=== PATIENT | male | born 1965 | race Caucasian/White ===

== ENCOUNTER 2017-07-24 05:47 | Day surgery (SDC) | payer BC ==
[~2017-07-24] VITALS: Ht 170.2 cm; Wt 67.1 kg
[2017-07-24] MEDS ORDERED: MIDAZOLAM HCL 5 MG/ML VIAL (VERSED) IV ONE (05:48)
[2017-07-24] MEDS ORDERED: LIDOCAINE/EPI 1% 1:100000 20 ML VIAL INJ ONE (05:48)
[2017-07-24] MEDS ORDERED: KETOROLAC TROMETHAMINE 30 MG VIAL IVP ONE (05:48)
[2017-07-24] MEDS ORDERED: ONDANSETRON HCL 4 MG/2 ML VIAL IVP ONE (05:48)
[2017-07-24] MEDS ORDERED: ROCURONIUM BROMIDE 10 MG/ML (ZEMURON) IV ONE (05:48)
[2017-07-24] MEDS ORDERED: PROPOFOL 200MG/ 20ML VIAL (DIPRIVAN) IV ONE (05:48)
[2017-07-24] MEDS ORDERED: LR 1,000 ML IV.SOLN IV ONE (05:48)
[2017-07-24] MEDS ORDERED: EPINEPHrine 1 MG/ML AMP IVP ONE (05:48)
[2017-07-24] MEDS ORDERED: OXYMETAZOLINE HCL 0.05% NASAL SPRAY NS ONE (05:48)
[2017-07-24] MEDS ORDERED: BACITRACIN ZINC 15 GM TOPICAL OINTMENT TP ONE (05:48)
[2017-07-24] MEDS ORDERED: DEXAMETHASONE SOD PHOSPHATE 4 MG/ML VIAL IVP ONE (05:48)
[2017-07-24] MEDS ORDERED: fentaNYL CITRATE/PF 100 MCG/2 ML AMP IVP ONE (05:48)
[2017-07-24] MEDS ORDERED: SEVOFLURANE 15 MIN GAS INH ONE (05:48)
[2017-07-24] MEDS ORDERED: WATER FOR IRRIGATION,STERILE 1,000 ML IRRIG.SOLN IR ONE (05:48)
[2017-07-24] MEDS ORDERED: BACITRACIN 1 GM OINT TP ONE (05:48)
[2017-07-24] MEDS ORDERED: NS IRRIG SOLN 1000 ML IR ONE (05:48)
[2017-07-24] MEDS ORDERED: fentaNYL CITRATE 250 MCG/5 ML AMP IV ONE (05:48)
[2017-07-24] MEDS ORDERED: METOCLOPRAMIDE HCL 10 MG/2 ML VIAL IVP ONE (05:48)
[2017-07-24] MEDS ORDERED: NS 50 ML BAG IV ONE (05:48)
[2017-07-24] MEDS ORDERED: IPRATROPIUM/ALBUTEROL SULFATE 3 ML AMPUL.NEB INH ONE (12:45)
[2017-07-24] MEDS ORDERED: IPRATROPIUM BROM 0.5 MG/2.5 ML VIAL.NEB (ATROVENT) INH ONE (12:51)
[2017-07-24] MEDS ORDERED: ALBUTEROL SULFATE 0.083% 2.5 MG/3 ML VIAL.NEB INH ONE (12:51)
[2017-07-24 15:46] VITALS: BP_SYST 116
== END 2017-07-24 14:55 | disposition home or self-care (01) ==
LOC: SDS 05:47 → SMU 05:48 → SDS 14:55
PROVIDERS: ATTEND Otolaryngology
DX: J34.2 Deviated nasal septum (principal); J32.9 Chronic sinusitis, unspecified; Z79.899 Other long term (current) drug therapy; F41.9 Anxiety disorder, unspecified
CPT/HCPCS: 30520; 30999; 31255; 31267; 31296; 31297; 87070; 87075; 87101; 88305; 88311; 94640; C1726; J0171; J1100; J1885; J2250; J2405; J2704; J2765; J3010 ×2; J7120